=== PATIENT | male | born 1930 ===

== ENCOUNTER 2017-06-19 09:42 | Emergency (ER) | payer OTHER ==
[~2017-06-19] VITALS: Ht 167.6 cm; Wt 108.9 kg
[~2017-06-19 09:42] MED LIST: CONEX TABLET1 EACH PO; COZAAR100 MG; DOLOGESIC CAPLE1 TAB PO; DOXAZOSIN MESYLA2 MG PO; GLUCOPHAGE XR500 MG; LEVAQUIN750 MG PO; LIPITOR20 MG PO; SINGULAIR10 MG; TUSSIONEX PENNKI5 ML PO; ZYRTEC10 MG
[2017-06-19] MEDS ORDERED: AMARYL PO (09:49)
== END 2017-06-19 20:14 | disposition home or self-care (01) ==
LOC: ER 09:42
DX: J44.9 Chronic obstructive pulmonary disease, unspecified (principal); E11.9 Type 2 diabetes mellitus without complications; G47.33 Obstructive sleep apnea (adult) (pediatric); E66.01 Morbid (severe) obesity due to excess calories; Z68.41 Body mass index [BMI] 40.0-44.9, adult; I10 Essential (primary) hypertension; R06.02 Shortness of breath

== ENCOUNTER 2017-06-26 22:05 | Inpatient (IN) | payer OTHER ==
[~2017-06-26] VITALS: Ht 162.6 cm; Wt 117.9 kg
[~2017-06-26 22:05] MED LIST changes: +AMARYL PO
== END 2017-07-04 12:24 | disposition home or self-care (01) | DRG 194 ==
LOC: ER 22:05 → SEC-K 06-27 17:26 → MEDI 06-27 17:26
PROC: 3E0F7GC Introduction of Other Therapeutic Substance into Respiratory Tract, Via Natural or Artificial Opening (ICD-10-PCS; principal; 2017-06-27)
PROC: 4A033R1 Measurement of Arterial Saturation, Peripheral, Percutaneous Approach (ICD-10-PCS; 2017-07-03)
DX: J09.X1 Influenza due to identified novel influenza A virus with pneumonia (principal); J44.1 Chronic obstructive pulmonary disease with (acute) exacerbation; Z68.41 Body mass index [BMI] 40.0-44.9, adult; J90 Pleural effusion, not elsewhere classified; I50.30 Unspecified diastolic (congestive) heart failure; J18.8 Other pneumonia, unspecified organism; I11.0 Hypertensive heart disease with heart failure; E11.21 Type 2 diabetes mellitus with diabetic nephropathy; E11.65 Type 2 diabetes mellitus with hyperglycemia; G47.33 Obstructive sleep apnea (adult) (pediatric); E66.01 Morbid (severe) obesity due to excess calories; R09.02 Hypoxemia; I16.0 Hypertensive urgency

== ENCOUNTER 2017-10-24 14:27 | Emergency (ER) | payer OTHER ==
[~2017-10-24] VITALS: Ht 167.6 cm; Wt 108.9 kg
== END 2017-10-24 21:11 | disposition home or self-care (01) ==
LOC: ER 14:27 → CPU-OBS 14:39 → ER 21:11
DX: J06.9 Acute upper respiratory infection, unspecified (principal); R07.89 Other chest pain; R06.02 Shortness of breath

== ENCOUNTER 2017-11-17 18:03 | Inpatient (IN) | payer OTHER ==
[~2017-11-17] VITALS: Ht 167.6 cm; Wt 112.0 kg
[2017-11-25] MEDS ORDERED: LOSARTAN POTAS100 MG PO (16:38)
[2017-11-25] MEDS ORDERED: XOPENEX0.63 MG/3 IH (16:38)
== END 2017-11-25 18:06 | disposition home or self-care (01) | DRG 190 ==
LOC: ER 18:03 → SEC-K 11-18 15:54 → MEDJ 11-18 15:54
PROC: 3E0F7GC Introduction of Other Therapeutic Substance into Respiratory Tract, Via Natural or Artificial Opening (ICD-10-PCS; principal; 2017-11-18)
PROC: 4A033R1 Measurement of Arterial Saturation, Peripheral, Percutaneous Approach (ICD-10-PCS; 2017-11-23)
DX: J44.1 Chronic obstructive pulmonary disease with (acute) exacerbation (principal); J18.9 Pneumonia, unspecified organism; Z68.41 Body mass index [BMI] 40.0-44.9, adult; J90 Pleural effusion, not elsewhere classified; I50.30 Unspecified diastolic (congestive) heart failure; E66.01 Morbid (severe) obesity due to excess calories; G47.33 Obstructive sleep apnea (adult) (pediatric); E11.21 Type 2 diabetes mellitus with diabetic nephropathy; E11.65 Type 2 diabetes mellitus with hyperglycemia; I16.0 Hypertensive urgency; F10.20 Alcohol dependence, uncomplicated; I11.0 Hypertensive heart disease with heart failure; K29.60 Other gastritis without bleeding

== ENCOUNTER 2017-12-08 11:20 | Outpatient (CLI) | payer OTHER ==
[~2017-12-08 11:20] MED LIST changes: +LOSARTAN POTAS100 MG PO; +XOPENEX0.63 MG/3 IH
== END 2017-12-08 11:31 | disposition home or self-care (01) ==
LOC: RAD 11:20
DX: J45.998 Other asthma (principal)

== ENCOUNTER 2018-01-19 23:42 | Inpatient (IN) | payer OTHER ==
[~2018-01-19] VITALS: Ht 167.6 cm; Wt 112.5 kg
== END 2018-01-30 16:45 | disposition home or self-care (01) | DRG 377 ==
LOC: ER 23:42 → ICU-2 01-20 15:10 → ICU 01-23 13:30 → MEDI 01-27 18:31
PROC: 30233N1 Transfusion of Nonautologous Red Blood Cells into Peripheral Vein, Percutaneous Approach (ICD-10-PCS; 2018-01-20)
PROC: 3E0F7GC Introduction of Other Therapeutic Substance into Respiratory Tract, Via Natural or Artificial Opening (ICD-10-PCS; 2018-01-20)
PROC: BW21Y0Z Computerized Tomography (CT Scan) of Abdomen and Pelvis using Other Contrast, Unenhanced and Enhanced (ICD-10-PCS; 2018-01-20)
PROC: 5A09557 Assistance with Respiratory Ventilation, Greater than 96 Consecutive Hours, Continuous Positive Airway Pressure (ICD-10-PCS; 2018-01-20)
PROC: 02HV33Z Insertion of Infusion Device into Superior Vena Cava, Percutaneous Approach (ICD-10-PCS; 2018-01-22)
PROC: 4A033R1 Measurement of Arterial Saturation, Peripheral, Percutaneous Approach (ICD-10-PCS; 2018-01-22)
PROC: 3E0436Z Introduction of Nutritional Substance into Central Vein, Percutaneous Approach (ICD-10-PCS; 2018-01-22)
PROC: B246ZZZ Ultrasonography of Right and Left Heart (ICD-10-PCS; 2018-01-22)
PROC: 0DJ08ZZ Inspection of Upper Intestinal Tract, Via Natural or Artificial Opening Endoscopic (ICD-10-PCS; principal; 2018-01-26)
PROC: 4A12X4Z Monitoring of Cardiac Electrical Activity, External Approach (ICD-10-PCS; 2018-01-27)
DX: K57.31 Diverticulosis of large intestine without perforation or abscess with bleeding (principal); R57.1 Hypovolemic shock; D62 Acute posthemorrhagic anemia; Z68.41 Body mass index [BMI] 40.0-44.9, adult; K80.10 Calculus of gallbladder with chronic cholecystitis without obstruction; J44.1 Chronic obstructive pulmonary disease with (acute) exacerbation; N17.8 Other acute kidney failure; J45.41 Moderate persistent asthma with (acute) exacerbation; K92.1 Melena; E11.21 Type 2 diabetes mellitus with diabetic nephropathy; E11.65 Type 2 diabetes mellitus with hyperglycemia; E66.01 Morbid (severe) obesity due to excess calories; G47.33 Obstructive sleep apnea (adult) (pediatric); K40.20 Bilateral inguinal hernia, without obstruction or gangrene, not specified as recurrent; K42.9 Umbilical hernia without obstruction or gangrene; F10.20 Alcohol dependence, uncomplicated; I50.83 High output heart failure; K29.50 Unspecified chronic gastritis without bleeding; E11.22 Type 2 diabetes mellitus with diabetic chronic kidney disease; I12.9 Hypertensive chronic kidney disease with stage 1 through stage 4 chronic kidney disease, or unspecified chronic kidney disease; N18.1 Chronic kidney disease, stage 1; D69.59 Other secondary thrombocytopenia

== ENCOUNTER 2018-05-19 10:18 | Outpatient (CLI) | payer OTHER | END 2018-05-19 10:27 | disposition home or self-care (01) | LOC: LAB 10:18 | DX: E78.3 Hyperchylomicronemia (principal); D68.8 Other specified coagulation defects; N39.0 Urinary tract infection, site not specified; E11.618 Type 2 diabetes mellitus with other diabetic arthropathy; E03.8 Other specified hypothyroidism ==